=== PATIENT | female | born 1935 | race Caucasian/White ===

== ENCOUNTER 2022-01-01 08:16 | Day surgery (SDC) | payer MEDICARE, MEDICAID ==
[2022-01-01] VITALS (12 sets, daily range): BP systolic 118–139; BP diastolic 46–57
[~2022-01-01] VITALS: Ht 147.3 cm; Wt 51.1 kg
[2022-01-01] MEDS ORDERED: normal saline 1000ml 1,000 ML IV SCH (08:50)
[2022-01-01] MEDS ORDERED: fentaNYL/PF 50MCG/1 ML 2ML syringe IV ONE (08:50)
[2022-01-01] MEDS ORDERED: MIDAZolam 1mg/ml 10ml vial IV ONE (08:50)
[2022-01-01 09:27] LABS: BASOPHILS % (AUTO) 0.5 % (0-1); EOSINOPHILS # (AUTO) 0.2 X10'3 (0-0.9); EOSINOPHILS % (AUTO) 3.2 % (0-6); LYMPHOCYTES # (AUTO) 0.6 X10'3 (1.1-4.8); LYMPHOCYTES % (AUTO) 9.1 % (21-51); MEAN CORPUSCULAR HGB CONC 33.2 g/dL (33.0-36.5); MEAN CORPUSCULAR VOLUME 102.2 FL (78-98); MEAN PLATELET VOLUME 8.8 FL (7.4-10.4); MONOCYTES # (AUTO) 0.7 X10'3 (0-0.9); NEUTROPHILS # (AUTO) 4.9 X10'3 (1.8-7.7); NEUTROPHILS % (AUTO) 76.2 % (42-75); PLATELET COUNT 261 X10'3 (140-440); RED BLOOD COUNT 3.82 X10'6 (4.20-5.60); WHITE BLOOD COUNT 6.4 X10'3 (4.5-11.0)
[2022-01-01] MEDS ORDERED: MULT-1085 PO (09:33)
[2022-01-01] MEDS ORDERED: LEVO50TA8 PO (09:33)
[2022-01-01] MEDS ORDERED: OXYB-58 PO (09:33)
[2022-01-01] MEDS ORDERED: ACET-1017 PO (09:33)
[2022-01-01] MEDS ORDERED: RIVA15TA PO (09:33)
[2022-01-01] MEDS ORDERED: IPRA30SP BOTHNARES (09:33)
[2022-01-01] MEDS ORDERED: CHOL50004 PO (09:33)
[2022-01-01] MEDS ORDERED: ESTR42.510 VG (09:33)
[2022-01-01] MEDS ORDERED: AMLO10TA13 PO (09:33)
[2022-01-01] MEDS ORDERED: ATOR20TA66 PO (09:33)
[2022-01-01] MEDS ORDERED: MULT-1130 PO (09:33)
[2022-01-01] MEDS ORDERED: FLEC100T2 PO ×2 (09:33)
[2022-01-01] MEDS ORDERED: SPIR25TA5 PO (09:33)
[2022-01-01 09:35] LABS: ALBUMIN 3.5 G/DL (3.4-5.0); ANION GAP 12 (8-16); BLOOD UREA NITROGEN 19 MG/DL (7-18); BUN/CREATININE RATIO 18.6 (6.6-38.0); CALCIUM 8.8 MG/DL (8.5-10.1); CHLORIDE 106 MMOL/L (99-107); CREATININE 1.02 MG/DL (0.40-0.90); GLUCOSE 91 MG/DL (70-104); MAGNESIUM 1.6 MG/DL (1.5-2.4); POTASSIUM 3.4 MMOL/L (3.5-5.1); SODIUM 139 MMOL/L (135-145); TOTAL CARBON DIOXIDE 21.4 MMOL/L (24-32); eGFR 51 ML/MIN
== END 2022-01-01 12:45 | disposition home or self-care (01) ==
LOC: SSTAY O 08:16
PROVIDERS: ATTEND Internal Medicine Cardiovascular Disease
DX: I48.4 Atypical atrial flutter (principal); I48.0 Paroxysmal atrial fibrillation; I10 Essential (primary) hypertension; E78.5 Hyperlipidemia, unspecified; K21.9 Gastro-esophageal reflux disease without esophagitis; M19.90 Unspecified osteoarthritis, unspecified site; E03.9 Hypothyroidism, unspecified; Z79.01 Long term (current) use of anticoagulants; Z90.710 Acquired absence of both cervix and uterus; Z98.890 Other specified postprocedural states; Z79.899 Other long term (current) drug therapy; Z87.891 Personal history of nicotine dependence; Z88.8 Allergy status to other drugs, medicaments and biological substances; Z88.1 Allergy status to other antibiotic agents; Z82.49 Family history of ischemic heart disease and other diseases of the circulatory system
CPT/HCPCS: 36415; 80048; 83735; 85025; 85610; 92960; 93005; 94799; J2250; J3010; J7030